=== PATIENT | female | born 1930 | race Hispanic/Latino ===

== ENCOUNTER 2017-03-30 17:09 | Emergency (ER) | payer MEDICARE ==
--- NOTE | 2017-03-30 17:21 | C.PDOC ---
History Of Present Illness 87 yr female with PMHx of seizure and dementia, brought in via BLS, presents to the ER s/p seizure at home. As per son-in-law, he had just served patient a tray of food when he heard the tray crash, upon his arrival he noticed the patient was not responding to commands and was staring blank into space. Son-in- law states he dialed 911 and by the time EMS arrived, patient had became alert and active and states she does not remember anything. Patient denies of pain, chest pain, SOB, headache or dizziness. Spoke to daughter Hattie who states patient is visiting from [place] and all doctors are located there. Daughter states last year the patient had a seizure and was started on Kepra and have been doing fine. Patient is non compliant with Kepra for the past 2 days since she ran out and was unable to refill it. Patient also has history of Lyme disease and severe rheumatoid arthritis with limited mobility. Patient also has history of hyperthyroid and is on synthroid. Daughter Alison - Hattie [phone] Time Seen by Provider: 03/30/17 17:12 History Per: Patient, Family (Son-in-law) History/Exam Limitations: no limitations Recent Seizure Activity Began: Just Before Arrival Past Medical History Reviewed: Historical Data, Nursing Documentation, Vital Signs Vital Signs: Last Vital Signs Temp 98 F 03/30/17 17:30 Pulse 90 03/30/17 17:30 Resp 16 03/30/17 17:30 BP 128/76 03/30/17 17:30 Pulse Ox 98 03/30/17 17:30 Family History: States: No Known Family Hx Review Of Systems Except As Marked, All Systems Reviewed And Found Negative. Cardiovascular: Negative for: Chest Pain Respiratory: Negative for: Shortness of Breath Neurological: Negative for: Headache, Dizziness Physical Exam - Physical Exam Appears: Non-toxic, No Acute Distress Skin: Warm, Dry, No Rash Head: Atraumatic, Normacephalic Eye(s): bilateral: Normal Inspection, PERRL, EOMI Oral Mucosa: Moist Neck: Normal, Normal ROM, Supple Chest: Symmetrical, No Tenderness Cardiovascular: Rhythm Regular, No Murmur Respiratory: Normal Breath Sounds, No Rales, No Rhonchi, No Stridor, No Wheezing Extremity: Normal ROM, No Swelling Neurological/Psych: Oriented x3, Normal Speech, Normal Motor Disposition - Disposition Disposition Time: 18:36 Condition: STABLE - Clinical Impression Clinical Impression: Seizure - Scribe Statement The provider has reviewed the documentation as recorded by the Scribe Kelly Pressley Provider Attestation: All medical record entries made by the Scribe were at my direction and personally dictated by me. I have reviewed the chart and agree that the record accurately reflects my personal performance of the history, physical exam, medical decision making, and the department course for this patient. I have also personally directed, reviewed, and agree with the discharge instructions and disposition. Physician Patient Turnover Patient Signed Over To: Cesar Bustillo DO Handoff Comments: patient s/p seizure, non compliant with meds X 2 days, pending head CT and labs. Pending arrival of daughter, Jaun weber, pending final dispo.
[2017-03-30 17:34] VITALS: RESP 16; TEMP 98; O2SAT 98
--- NOTE | 2017-03-30 18:17 | RAD ---
PROCEDURE: CHEST RADIOGRAPH, 1 VIEW HISTORY: Seizure COMPARISON: None available. FINDINGS: LUNGS: Clear. PLEURA: No pneumothorax or pleural fluid seen. CARDIOVASCULAR: ANABEL No radiographic findings to suggest acute or significant cardiovascular disease. OSSEOUS STRUCTURES: No significant abnormalities. VISUALIZED UPPER ABDOMEN: Normal. OTHER FINDINGS: None. IMPRESSION: No active disease.
[2017-03-30 18:49] LABS: HEMATOCRIT 39.2 % (34.0-47.0); MEAN CELL VOLUME 91.4 fL (81.0-99.0); MEAN CORPUSCULAR HEMOGLOBIN 30.8 pg (27.0-31.0); MEAN CORPUSCULAR HGB CONC 33.7 g/dL (33.0-37.0); MEAN PLATELET VOLUME 6.9 fL (7.2-11.7); WHITE BLOOD COUNT 6.3 K/uL (4.8-10.8)
--- NOTE | 2017-03-30 18:50 | CT ---
PROCEDURE: CT HEAD WITHOUT CONTRAST. HISTORY: seizure COMPARISON: None available. TECHNIQUE: Axial computed tomography images were obtained through the head/brain without intravenous contrast. Radiation dose: Total exam DLP = 908.35 mGy-cm. This CT exam was performed using one or more of the following dose reduction techniques: Automated exposure control, adjustment of the mA and/or kV according to patient size, and/or use of iterative reconstruction technique. FINDINGS: HEMORRHAGE: No intracranial hemorrhage. BRAIN: Diffuse atrophy with prominence of the ventricles and sulci noted. No mass effect or edema. Bilateral basal ganglia calcifications. Hypodensity within the left temporal lobe may reflect encephalomalacia. Scattered white matter hypodensities, which are nonspecific, but often seen with chronic microvascular ischemic disease. Please note that MRI with diffusion imaging is more sensitive in the detection of acute ischemic event. VENTRICLES: No hydrocephalus. CALVARIUM: Unremarkable. PARANASAL SINUSES: Unremarkable as visualized. No significant inflammatory changes. MASTOID AIR CELLS: Unremarkable as visualized. No inflammatory changes. OTHER FINDINGS: None. IMPRESSION: Generalized atrophy. Nonspecific white matter changes. Hypodense region within the left temporal lobe may reflect encephalomalacia.
[2017-03-30 19:02] LABS: ALB/GLOB RATIO 1.2 (1.0-2.1); ALCOHOL SERUM < 10 mg/dl (0-10); ALKALINE PHOSPHATASE 70 U/L (38-126); ALT/SGPT 29 U/L (9-52); AST/SGOT 21 U/L (14-36); BLOOD UREA NITROGEN 15 mg/dL (7-17); CARBON DIOXIDE 29 mmol/L (22-30); CHLORIDE 104 mmol/L (98-107); GFR AFRICAN-AMERICAN > 60; GLUCOSE,RANDOM 104 mg/dL (65-105); POTASSIUM 3.7 mmol/L (3.6-5.2); SODIUM 139 mmol/L (132-148); TOTAL PROTEIN 6.9 g/dL (6.3-8.3)
[2017-03-30 20:01] LABS: RBC URINE 2 /hpf (0-3); URINE BACTERIA RARE (<OCC); URINE BILIRUBIN NEGATIVE (NEGATIVE); URINE BLOOD NEGATIVE (NEGATIVE); URINE COLOR Yellow (YELLOW); URINE GLUCOSE (UA) NORMAL (Normal); URINE KETONE NEGATIVE (NEGATIVE); URINE LEUKOCYTE ESTERASE NEG Leu/uL (Negative); URINE PROTEIN NEGATIVE (NEGATIVE); URINE UROBILINOGEN NORMAL mg/dL (0.2-1.0); WBC URINE 5 /hpf (0-5)
[2017-03-30 20:40] VITALS: BP 131/52; PULSE 60
--- NOTE | 2017-04-01 13:16 | CARD ---
APPROVED REPORT EKG Measurement Heart [id number] <Conclusion> Normal sinus rhythm Nonspecific T wave abnormality Abnormal ECG
== END 2017-03-30 20:40 | disposition home or self-care (01) ==
LOC: C.ER 17:09
DX: G40.909 Epilepsy, unspecified, not intractable, without status epilepticus (principal)
CPT/HCPCS: 70450; 71010; 80053; 81001; 82948; 84484; 85027; 93005; 99285; G0480

== ENCOUNTER 2017-07-01 17:53 | Inpatient (IN) | payer MEDICARE ==
[2017-07-01] MEDS ORDERED: Aspirin 325 mg EC Tablets PO STA (18:32)
--- NOTE | 2017-07-01 18:47 | C.PDOC ---
History Of Present Illness 87 y/o female presents to the ED accompanied by daughter, complaining of epigastric pain and left lower chest pain for 3 days. Pain is associated with shortness of breath. Denies any associated nausea, vomiting, or diarrhea. Not taking meds for pain. Describes pain as pressure-like with intermittent moments of sharpness. Time Seen by Provider: 07/01/17 18:09 Chief Complaint (Nursing): Chest Pain History Per: Patient History/Exam Limitations: no limitations Onset/Duration Of Symptoms: Days (x3) Current Symptoms Are (Timing): Still Present Past Medical History Reviewed: Historical Data, Nursing Documentation, Vital Signs Vital Signs: Last Vital Signs Temp 97.8 F 07/01/17 18:19 Pulse 63 07/01/17 18:19 Resp 20 07/01/17 18:19 BP 146/67 07/01/17 18:19 Pulse Ox 98 07/01/17 20:46 - Medical History PMH: Hypothyroidism, Rheumatoid Arthritis, Seizures Family History: States: No Known Family Hx - Social History Hx Alcohol Use: No Hx Substance Use: No - Immunization History Hx Tetanus Toxoid Vaccination: No Hx Influenza Vaccination: No Hx Pneumococcal Vaccination: No Review Of Systems Except As Marked, All Systems Reviewed And Found Negative. Cardiovascular: Positive for: Chest Pain Physical Exam - Physical Exam Appears: Non-toxic, No Acute Distress Skin: Normal Color, Warm, Dry, No Diaphoretic Head: Atraumatic, Normacephalic Eye(s): bilateral: Normal Inspection, PERRL, EOMI Nose: Normal Oral Mucosa: Moist Neck: Normal ROM, Supple Chest: Symmetrical, No Tenderness Cardiovascular: Rhythm Regular, No Murmur Respiratory: Decreased Breath Sounds (at the bases), No Wheezing Gastrointestinal/Abdominal: Bowel Sounds, Soft, No Tenderness, No Distention Back: Normal Inspection, No CVA Tenderness, No Vertebral Tenderness Extremity: Normal ROM, No Calf Tenderness, Swelling (+1 bilateral pitting edema) Neurological/Psych: Oriented x3, Normal Speech ED Course And Treatment - Laboratory Results Result Diagrams: 07/01/17 19:18 07/01/17 19:18 ECG: Interpreted By Me, Viewed By Me ECG Rhythm: Sinus Bradycardia (at 55 bpm with poor R wave progression, normal intervals, normal axis. T wave inversion at leads 4, 5, 6) O2 Sat by Pulse Oximetry: 98 (RA) Pulse Ox Interpretation: Normal - Other Rad chest x-ray X-Ray: Interpreted by Me, Viewed By Me Interpretation: Hyperinflation, increased interstitial changes, no gross infiltrate. Medical Decision Making Medical Decision Making: Impression: Atypical chest pain Time: 18:32 Initial Plan: * EKG * Pro-BNP * Lipase * Troponin I * CMP * CBC * Chest x-ray * Aspirin 325 mg PO * Pepcid 20 mg IVP * Reevaluation Labs reviewed: troponin negative. On reevaluation, pt continues to complain of chest pain. 20:33 Patient will be admitted to [facility] for obs for chest pain. Disposition Discussed With : Mi Diaz Doctor Will See Patient In The: Hospital Counseled Patient/Family Regarding: Studies Performed, Diagnosis - Disposition Disposition: HOSPITALIZED Disposition Time: 20:33 Condition: FAIR Forms: [facility] (Polish) - Clinical Impression Clinical Impression: Chest pain - Scribe Statement The provider has reviewed the documentation as recorded by the Melissa Rincon Provider Attestation: All medical record entries made by the Himaibefraín were at my direction and personally dictated by me. I have reviewed the chart and agree that the record accurately reflects my personal performance of the history, physical exam, medical decision making, and the department course for this patient. I have also personally directed, reviewed, and agree with the discharge instructions and disposition. Decision To Admit - Pt Status Changed To: Hospital Disposition Of: Observation - . Bed Request Type: Regular Patient Diagnosis: Chest pain
[2017-07-01 19:25] LABS: BASO # 0.1 K/uL (0.0-0.2); BASO % 2.5 % (0.0-2.0); EOS # 0.1 K/uL (0.0-0.7); EOS % 1.7 % (0.0-4.0); HEMOGLOBIN 12.7 g/dL (11.0-16.0); LYMPH # 2.5 K/uL (1.0-4.3); LYMPH % 44.7 % (20.0-40.0); MEAN CELL VOLUME 90.8 fL (81.0-99.0); MEAN CORPUSCULAR HEMOGLOBIN 31.1 pg (27.0-31.0); MEAN CORPUSCULAR HGB CONC 34.3 g/dL (33.0-37.0); MONO # 0.7 K/uL (0.0-0.8); MONO % 13.2 % (0.0-10.0); NEUT # 2.1 K/uL (1.8-7.0); NEUT % 37.9 % (50.0-75.0); RBC 4.08 Mil/uL (3.80-5.20); WHITE BLOOD COUNT 5.6 K/uL (4.8-10.8)
[2017-07-01 19:33] LABS: ALBUMIN 3.7 g/dL (3.5-5.0); ALT/SGPT 19 U/L (9-52); AST/SGOT 21 U/L (14-36); BLOOD UREA NITROGEN 14 mg/dL (7-17); CALCIUM 8.6 mg/dl (8.6-10.4); GFR AFRICAN-AMERICAN > 60; GFR NON-AFRICAN AMERICAN > 60; LIPASE 29 U/L (23-300)
[2017-07-01 19:44] LABS: B-TYPE NATRIURETIC PEPTIDE 122 pg/mL (0-900)
--- NOTE | 2017-07-01 22:36 | CP.PCM.HP ---
Present on Admission - Present on Admission Any Indicators Present on Admission: No Past Patient History - Past Social History Smoking Status: Never Smoked - CARDIAC Other/Comment: "implanted heart monitor" - NEUROLOGICAL Hx Seizures: Yes - ENDOCRINE/METABOLIC Hx Hypothyroidism: Yes - MUSCULOSKELETAL/RHEUMATOLOGICAL Hx Rheumatoid Arthritis: Yes - PSYCHIATRIC Hx Substance Use: No - SURGICAL HISTORY Hx Thyroidectomy: Yes Meds Allergies/Adverse Reactions: Allergies Allergy/AdvReac Type Severity Reaction Status Date / Time No Known Allergies Allergy Verified 07/01/17 18:25 Results - Vital Signs Recent Vital Signs: Last Vital Signs Temp 97.7 F 07/01/17 22:13 Pulse 58 L 07/01/17 22:04 Resp 20 07/01/17 22:04 BP 153/119 H 07/01/17 22:04 Pulse Ox 100 07/01/17 22:04 - Labs Result Diagrams: 07/01/17 19:18 07/01/17 19:18 Labs: Laboratory Results - last 24 hr 07/01/17 07/01/17 19:18 19:18 WBC 5.6 RBC 4.08 Hgb 12.7 Hct 37.1 MCV 90.8 MCH 31.1 H MCHC 34.3 RDW 14.0 Plt Count 342 MPV 7.0 L Neut % (Auto) 37.9 L Lymph % (Auto) 44.7 H [place] % (Auto) 13.2 H Eos % (Auto) 1.7 Baso % (Auto) 2.5 H Neut # (Auto) 2.1 Lymph # (Auto) 2.5 [place] # (Auto) 0.7 Eos # (Auto) 0.1 Baso # (Auto) 0.1 Sodium 141 Potassium 3.7 Chloride 104 Carbon Dioxide 26 Anion Gap 15 BUN 14 Creatinine 0.6 L Est GFR ( Amer) > 60 Est GFR (Non-Af Amer) > 60 Random Glucose 83 Calcium 8.6 Total Bilirubin 0.8 AST 21 ALT 19 Alkaline Phosphatase 67 Troponin I < 0.0120 NT-Pro-B Natriuret Pep 122 Total Protein 7.6 Albumin 3.7 Globulin 3.9 Albumin/Globulin Ratio 1.0 Lipase 29 Assessment & Plan - Assessment and Plan (Free Text) Plan: Continue Keppra continue Levoxyl Omit [address] Jesus Owens Reconciliation of full medications Protonix Lovenox
[2017-07-02 04:47] LABS: CK-MB 0.43 ng/mL (0.0-3.38)
[2017-07-02] MEDS: Levothyroxine 75 MCG TAB PO SCH (06:30)
--- NOTE | 2017-07-02 06:47 | RAD ---
Chest x-ray single frontal view History: Chest pain. Comparison: 03/30/2017 Findings: Biapical pleural thickening with upper lobe granulomatous changes. Prominent diffuse increased interstitial lung markings. Linear atelectasis at the left lung base. Calcification at the aortic knob. Battery device projects over the left heart border. Degenerative changes in the spine and shoulders. Impression: Biapical pleural thickening with upper lobe granulomatous changes. Prominent diffuse increased interstitial lung markings. Linear atelectasis at the left lung base. Calcification at the aortic knob. Battery device projects over the left heart border.
[2017-07-02] MEDS: Pantoprazole 40 mg EC Tab PO SCH (09:59)
[2017-07-02] MEDS: Enoxaparin 40 mg Syringe SC SCH (09:59)
--- NOTE | 2017-07-02 10:21 | CP.PCM.PN ---
Subjective - Date & Time of Evaluation Date of Evaluation: 07/02/17 Time of Evaluation: 09:00 - Subjective Subjective: PGY-2 Progress Note Patient seen and examined at bedside. No acute events reported overnight. Patient still complaints of intermittent chest pain, it is reproducible with movement. Patient denies having fever, chills, shortness of breath, nausea, vomiting, or diarrhea. Spoken with patient's daughter (Hattie [phone]) over the phone, stating that patient moved to [place] 6 months ago and her atomic fuel assembler is Dr. Cesar Barry in [place], [place]. Patient has Medtronic LINQ device placed 2 years ago to evaluate her arrhythmia. Patient's device was last checked 6 months ago and it was functional. Objective - Vital Signs/Intake and Output Vital Signs (last 24 hours): Temp Pulse Resp BP Pulse Ox 98.2 F 60 20 152/76 H 98 07/02/17 08:07 07/02/17 08:23 07/02/17 08:07 07/02/17 08:07 07/02/17 08:12 Intake and Output: 07/02/17 07/02/17 06:59 18:59 Output Total 150 Balance -150 - Medications Medications: Current Medications Aspirin (Aspirin) 325 mg PO DAILY [facility] Last Admin: 07/02/17 10:00 Dose: 325 mg Enoxaparin Sodium (Lovenox) 40 mg SC DAILY [facility] Last Admin: 07/02/17 09:59 Dose: 40 mg Levetiracetam (Keppra) 500 mg PO BID [facility] Last Admin: 07/02/17 10:00 Dose: 500 mg Levothyroxine Sodium (Synthroid) 75 mcg PO DAILY@0630 [facility] Last Admin: 07/02/17 06:30 Dose: 75 mcg Pantoprazole Sodium (Protonix Ec Tab) 40 mg PO DAILY [facility] Last Admin: 07/02/17 09:59 Dose: 40 mg - Labs Labs: 07/01/17 19:18 07/01/17 19:18 - Constitutional Appears: Non-toxic, No Acute Distress - Head Exam Head Exam: ATRAUMATIC - Eye Exam Eye Exam: EOMI Pupil Exam: NORMAL ACCOMODATION - ENT Exam ENT Exam: Mucous Membranes Moist - Neck Exam Neck Exam: Normal Inspection - Respiratory Exam Respiratory Exam: Clear to Ausculation Bilateral, NORMAL BREATHING PATTERN - Cardiovascular Exam Cardiovascular Exam: REGULAR RHYTHM, +S1, +S2 - GI/Abdominal Exam GI & Abdominal Exam: Soft, Normal Bowel Sounds. absent: Tenderness - Neurological Exam Neurological Exam: Alert, Awake, Oriented x3 - Psychiatric Exam Psychiatric exam: Normal Affect, Normal Mood - Skin Skin Exam: Dry, Warm Additional comments: Palpable site operations manager device located under the left breast Assessment and Plan - Assessment and Plan (Free Text) Assessment: Chest pain -EKG unremarkable -Troponin negative x2, pending -Aspirin 325mg -Echo pending -Cardiology consult, Dr. Kwan help appreciated -Patient has Medtronic LINQ device History of hypothyroidism -synthroid 75mcg History of seizure -Keppra 500mg po BID Prophylactic measures -Lovenox -Protonix Case discussed with attending Dr. Diaz All management per Dr. Diaz
[2017-07-02 12:54] LABS: CK-MB 0.55 ng/mL (0.0-3.38)
--- NOTE | 2017-07-02 13:45 | CP.PCM.PN ---
Subjective - Date & Time of Evaluation Date of Evaluation: 07/02/17 Time of Evaluation: 11:00 - Subjective Subjective: clinically same Objective - Vital Signs/Intake and Output Vital Signs (last 24 hours): Temp Pulse Resp BP Pulse Ox 98.2 F 63 20 152/76 H 98 07/02/17 08:07 07/02/17 11:32 07/02/17 08:07 07/02/17 08:07 07/02/17 08:12 Intake and Output: 07/02/17 07/02/17 06:59 18:59 Output Total 150 Balance -150 - Medications Medications: Current Medications Aspirin (Aspirin) 325 mg PO DAILY [facility] Last Admin: 07/02/17 10:00 Dose: 325 mg Enoxaparin Sodium (Lovenox) 40 mg SC DAILY [facility] Last Admin: 07/02/17 09:59 Dose: 40 mg Levetiracetam (Keppra) 500 mg PO BID [facility] Last Admin: 07/02/17 10:00 Dose: 500 mg Levothyroxine Sodium (Synthroid) 75 mcg PO DAILY@0630 [facility] Last Admin: 07/02/17 06:30 Dose: 75 mcg Pantoprazole Sodium (Protonix Ec Tab) 40 mg PO DAILY [facility] Last Admin: 07/02/17 09:59 Dose: 40 mg - Labs Labs: 07/01/17 19:18 07/01/17 19:18 - Constitutional Appears: Well - Head Exam Head Exam: ATRAUMATIC, NORMAL INSPECTION, NORMOCEPHALIC - Eye Exam Eye Exam: EOMI, Normal appearance, PERRL Pupil Exam: NORMAL ACCOMODATION, PERRL - ENT Exam ENT Exam: Mucous Membranes Moist, Normal Exam - Neck Exam Neck Exam: Full ROM, Normal Inspection. absent: Lymphadenopathy - Respiratory Exam Respiratory Exam: Decreased Breath Sounds - Cardiovascular Exam Cardiovascular Exam: REGULAR RHYTHM, +S1, +S2 - GI/Abdominal Exam GI & Abdominal Exam: Soft, Diminished Bowel Sounds - Rectal Exam Rectal Exam: Deferred
--- NOTE | 2017-07-03 01:02 | CARD ---
APPROVED REPORT EXAM: Two-dimensional and M-mode echocardiogram with Doppler and color Doppler. Other Information Quality : GoodRhythm : INDICATION Chest Pain 2D DIMENSIONS IVSd1.0 (0.7-1.1cm)LVDd3.8 (3.9-5.9cm) PWd0.9 (0.7-1.1cm)LVDs1.5 (2.5-4.0cm) FS (%) 61.5 % M-Mode DIMENSIONS RVDd1.37 (2.1-3.2cm)Left Atrium (MM)3.46 (2.5-4.0cm) IVSd1.14 (0.7-1.1cm)Aortic Root2.35 (2.2-3.7cm) LVDd4.15 (4.0-5.6cm)Aortic Cusp Exc.1.46 (1.5-2.0cm) PWd1.09 (0.7-1.1cm)FS (%) 42 % LVDs2.40 (2.0-3.8cm)LVEF (%)73 (>50%) Aortic Valve AI P 1/2 [id number] Mitral Valve MV E Jusobepn68.4cm/sMV A Pbbfdrxg74.2cm/sE/A ratio0.8 TDI E/Lateral E'0.0E/Medial E'0.0 Tricuspid Valve TR Peak [id number]/sTR Peak [id number] LEFT VENTRICLE The left ventricle is normal size. There is borderline to mild concentric left ventricular hypertrophy. Left ventricle systolic function is normal. The Ejection Fraction is >70%. There is normal LV segmental wall motion. Tissue Doppler imaging reveals abnormal left ventricular diastolic dysfunction. RIGHT VENTRICLE The right ventricle is normal size. There is normal right ventricular wall thickness. The right ventricular systolic function is normal. ATRIA The left atrium size is normal. The right atrium size is normal. The interatrial septum is intact with no evidence for an atrial septal defect. AORTIC VALVE The aortic valve is normal in structure. There is mild aortic regurgitation. There is no aortic valvular stenosis. MITRAL VALVE The mitral valve is normal in structure. There is no evidence of mitral valve prolapse. There is no mitral valve stenosis. Mitral regurgitation is mild. TRICUSPID VALVE The tricuspid valve is normal in structure. There is mild tricuspid regurgitation. Right ventricular systolic pressure is estimated at less than 30 mmHg. There is no pulmonary hypertension. PULMONIC VALVE The pulmonic valve is not well visualized. There is no pulmonic valvular regurgitation. GREAT VESSELS The aortic root is normal in size. PERICARDIAL EFFUSION There is no pericardial effusion. <Conclusion> Left ventricle systolic function is normal. The Ejection Fraction is >70%. Hypertensive heart disease. Diastolic dysfunction. There is mild aortic regurgitation. Mitral regurgitation is mild. There is mild tricuspid regurgitation. There is no pulmonary hypertension. There is no pulmonic valvular regurgitation.
[2017-07-03] MEDS: Levothyroxine 75 MCG TAB PO SCH (05:58)
[2017-07-03 07:45] LABS: BASO # 0.1 K/uL (0.0-0.2); BASO % 1.4 % (0.0-2.0); EOS # 0.2 K/uL (0.0-0.7); EOS % 3.6 % (0.0-4.0); HEMOGLOBIN 12.8 g/dL (11.0-16.0); LYMPH # 2.5 K/uL (1.0-4.3); LYMPH % 48.9 % (20.0-40.0); MEAN CELL VOLUME 91.5 fL (81.0-99.0); MEAN CORPUSCULAR HEMOGLOBIN 31.5 pg (27.0-31.0); MEAN CORPUSCULAR HGB CONC 34.4 g/dL (33.0-37.0); MEAN PLATELET VOLUME 7.6 fL (7.2-11.7); MONO # 0.7 K/uL (0.0-0.8); MONO % 13.3 % (0.0-10.0); NEUT # 1.6 K/uL (1.8-7.0); NEUT % 32.8 % (50.0-75.0); NRBC % 0.1 % (0.0-2.0); RBC 4.08 Mil/uL (3.80-5.20); RED CELL DISTRIBUTION WIDTH 13.9 % (11.5-14.5)
[2017-07-03 08:00] LABS: ALBUMIN 3.6 g/dL (3.5-5.0); ALT/SGPT 13 U/L (9-52); AST/SGOT 27 U/L (14-36); BLOOD UREA NITROGEN 13 mg/dL (7-17); CALCIUM 8.6 mg/dl (8.6-10.4); GFR AFRICAN-AMERICAN > 60; GFR NON-AFRICAN AMERICAN > 60
[2017-07-03] MEDS: Enoxaparin 40 mg Syringe SC SCH (10:10)
[2017-07-03] MEDS: Pantoprazole 40 mg EC Tab PO SCH (10:10)
--- NOTE | 2017-07-03 13:11 | CP.PCM.CON ---
History of Present Illness - History of Present Illness History of Present Illness: 87 y/o woman- poor historian: emperatriz with c/o chest wall and vague abdominal pain: No fevr, chills, CHF sx;s, palpitation or distress + hx dementia + hx seizure disorder + resides in [place] but moved here 6 months ago + Dementia Ambulates with assistance, uses a cane No documented hx of AK or CVA Has had a loop monitor implanted L. chest to monitor for arrythmia: Currently in TELE has remained Sinus judy, NSR, no AFIB Resting comfortably in bed, responds to simple questions. Review of Systems - Review of Systems All systems: reviewed and no additional remarkable complaints except Past Patient History - Past Social History Smoking Status: Never Smoked - CARDIAC Other/Comment: "implanted heart monitor" - NEUROLOGICAL Hx Seizures: Yes - ENDOCRINE/METABOLIC Hx Hypothyroidism: Yes - MUSCULOSKELETAL/RHEUMATOLOGICAL Hx Rheumatoid Arthritis: Yes - PSYCHIATRIC Hx Substance Use: No - SURGICAL HISTORY Hx Thyroidectomy: Yes Meds Allergies/Adverse Reactions: Allergies Allergy/AdvReac Type Severity Reaction Status Date / Time No Known Allergies Allergy Verified 07/01/17 18:25 - Medications Medications: Current Medications Acetaminophen (Tylenol 325mg Tab) 650 mg PO Q6 PRN PRN Reason: Pain, Mild (1-3) Last Admin: 07/03/17 10:11 Dose: 650 mg Aspirin (Aspirin) 325 mg PO DAILY [facility] Last Admin: 07/03/17 10:10 Dose: 325 mg Enoxaparin Sodium (Lovenox) 40 mg SC DAILY [facility] Last Admin: 07/03/17 10:10 Dose: 40 mg Levetiracetam (Keppra) 500 mg PO BID [facility] Last Admin: 07/03/17 10:10 Dose: 500 mg Levothyroxine Sodium (Synthroid) 75 mcg PO DAILY@0630 [facility] Last Admin: 07/03/17 05:58 Dose: 75 mcg Pantoprazole Sodium (Protonix Ec Tab) 40 mg PO DAILY [facility] Last Admin: 07/03/17 10:10 Dose: 40 mg Physical Exam - Constitutional Appears: No Acute Distress, Older Than Stated Age - Head Exam Head Exam: ATRAUMATIC, NORMAL INSPECTION, NORMOCEPHALIC - Eye Exam Eye Exam: EOMI, Normal appearance, PERRL - ENT Exam ENT Exam: Mucous Membranes Moist, Normal Oropharynx - Neck Exam Neck exam: Positive for: Normal Inspection. Negative for: Tenderness, Thyromegaly - Respiratory Exam Respiratory Exam: Clear to Auscultation Bilateral, NORMAL BREATHING PATTERN. absent: Rales, Rhonchi, Wheezes - Cardiovascular Exam Cardiovascular Exam: REGULAR RHYTHM, +S1, +S2. absent: Gallop, +S4, Systolic Murmur - GI/Abdominal Exam GI & Abdominal Exam: Normal Bowel Sounds, Soft. absent: Tenderness - Extremities Exam Extremities exam: Positive for: normal inspection, pedal pulses present. Negative for: calf tenderness, pedal edema - Neurological Exam Neurological exam: Alert - Psychiatric Exam Psychiatric exam: Normal Affect, Normal Mood - Skin Skin Exam: Normal Color, Warm Results - Vital Signs Recent Vital Signs: Last Vital Signs Temp 98.1 F 07/03/17 12:56 Pulse 66 07/03/17 12:56 Resp 20 07/03/17 12:56 BP 136/77 07/03/17 12:56 Pulse Ox 98 07/03/17 12:56 - Labs Result Diagrams: 07/03/17 07:35 07/03/17 07:35 Labs: Laboratory Results - last 24 hr 07/03/17 07/03/17 07:35 07:35 WBC 5.0 RBC 4.08 Hgb 12.8 Hct 37.3 MCV 91.5 MCH 31.5 H MCHC 34.4 RDW 13.9 Plt Count 324 MPV 7.6 Neut % (Auto) 32.8 L Lymph % (Auto) 48.9 H [place] % (Auto) 13.3 H Eos % (Auto) 3.6 Baso % (Auto) 1.4 Neut # (Auto) 1.6 L Lymph # (Auto) 2.5 [place] # (Auto) 0.7 Eos # (Auto) 0.2 Baso # (Auto) 0.1 Sodium 143 Potassium 3.7 Chloride 104 Carbon Dioxide 28 Anion Gap 15 BUN 13 Creatinine 0.6 L Est GFR ( Amer) > 60 Est GFR (Non-Af Amer) > 60 Random Glucose 86 Calcium 8.6 Total Bilirubin 0.9 AST 27 ALT 13 Alkaline Phosphatase 60 Total Protein 7.4 Albumin 3.6 Globulin 3.8 Albumin/Globulin Ratio 1.0 - EKG Data EKG Interpreted by: Myself EKG shows normal: Sinus rhythm (Sinus judy, non-specific ST/T changes) Assessment & Plan - Assessment and Plan (Free Text) Assessment: CC: -----> Chest pain : Atypical, chest wall tenderness c/w musckuloskeletal strain : AK ruled out : EKG.. No acute ischemic changes : Echo directly viwed by me: Normal LVEF and wall motion, mild AI,MR,TR, normal RV size and PASP, Mild LVH, : CXR...No infiltrates, normal cardiac Based on the above there is no suspicion for ACS/CHF, No arrythmia has been noted on TELE andlabs are WNL : Patient has a loop recorder to monitor for arrythmia and can be continued as outpatient. : COnt ASA : Add Norvasc 2.5 daily to help with BP : physical therapy, continue meds for seizure d/o and thyroid No additional cardiac testing suggested: d/c planning from cardiac stand-point.
--- NOTE | 2017-07-03 15:04 | CP.PCM.PN ---
Subjective - Date & Time of Evaluation Date of Evaluation: 07/03/17 Time of Evaluation: 12:40 - Subjective Subjective: clinically same Objective - Vital Signs/Intake and Output Vital Signs (last 24 hours): Temp Pulse Resp BP Pulse Ox 98.1 F 66 20 136/77 98 07/03/17 12:56 07/03/17 12:56 07/03/17 12:56 07/03/17 12:56 07/03/17 12:56 Intake and Output: 07/03/17 07/03/17 06:59 18:59 Intake Total 10 Balance 10 - Medications Medications: Current Medications Acetaminophen (Tylenol 325mg Tab) 650 mg PO Q6 PRN PRN Reason: Pain, Mild (1-3) Last Admin: 07/03/17 10:11 Dose: 650 mg Aspirin (Aspirin) 325 mg PO DAILY [facility] Last Admin: 07/03/17 10:10 Dose: 325 mg Enoxaparin Sodium (Lovenox) 40 mg SC DAILY [facility] Last Admin: 07/03/17 10:10 Dose: 40 mg Levetiracetam (Keppra) 500 mg PO BID [facility] Last Admin: 07/03/17 10:10 Dose: 500 mg Levothyroxine Sodium (Synthroid) 75 mcg PO DAILY@0630 [facility] Last Admin: 07/03/17 05:58 Dose: 75 mcg Pantoprazole Sodium (Protonix Ec Tab) 40 mg PO DAILY [facility] Last Admin: 07/03/17 10:10 Dose: 40 mg - Labs Labs: 07/03/17 07:35 07/03/17 07:35 - Constitutional Appears: Well - Head Exam Head Exam: ATRAUMATIC, NORMAL INSPECTION, NORMOCEPHALIC - Eye Exam Eye Exam: EOMI, Normal appearance, PERRL Pupil Exam: NORMAL ACCOMODATION, PERRL - ENT Exam ENT Exam: Mucous Membranes Moist, Normal Exam - Neck Exam Neck Exam: Full ROM, Normal Inspection. absent: Lymphadenopathy - Respiratory Exam Respiratory Exam: Decreased Breath Sounds - Cardiovascular Exam Cardiovascular Exam: REGULAR RHYTHM, +S1, +S2 - GI/Abdominal Exam GI & Abdominal Exam: Soft, Diminished Bowel Sounds - Rectal Exam Rectal Exam: Deferred
[2017-07-04] MEDS: Levothyroxine 75 MCG TAB PO SCH (06:03)
[2017-07-04 08:47] LABS: BASO # 0.1 K/uL (0.0-0.2); BASO % 1.5 % (0.0-2.0); EOS # 0.2 K/uL (0.0-0.7); HEMOGLOBIN 13.6 g/dL (11.0-16.0); LYMPH # 2.6 K/uL (1.0-4.3); LYMPH % 47.2 % (20.0-40.0); MEAN CORPUSCULAR HEMOGLOBIN 31.1 pg (27.0-31.0); MEAN CORPUSCULAR HGB CONC 34.2 g/dL (33.0-37.0); MEAN PLATELET VOLUME 7.6 fL (7.2-11.7); MONO # 0.8 K/uL (0.0-0.8); MONO % 13.8 % (0.0-10.0); NEUT # 1.9 K/uL (1.8-7.0); NEUT % 33.5 % (50.0-75.0); NRBC % 0.1 % (0.0-2.0); RBC 4.35 Mil/uL (3.80-5.20); RED CELL DISTRIBUTION WIDTH 14.1 % (11.5-14.5); WHITE BLOOD COUNT 5.5 K/uL (4.8-10.8)
[2017-07-04 08:53] LABS: ALBUMIN 3.7 g/dL (3.5-5.0); ALT/SGPT 16 U/L (9-52); AST/SGOT 22 U/L (14-36); BLOOD UREA NITROGEN 14 mg/dL (7-17); CALCIUM 8.7 mg/dl (8.6-10.4); GFR AFRICAN-AMERICAN > 60; GFR NON-AFRICAN AMERICAN > 60
[2017-07-04] MEDS: Enoxaparin 40 mg Syringe SC SCH (10:13)
[2017-07-04] MEDS: Pantoprazole 40 mg EC Tab PO SCH (10:13)
[2017-07-04 16:20] VITALS: RESP 20
--- NOTE | 2017-07-04 17:55 | CP.PCM.PN ---
Subjective - Date & Time of Evaluation Date of Evaluation: 07/04/17 Time of Evaluation: 11:40 - Subjective Subjective: clinically same Objective - Vital Signs/Intake and Output Vital Signs (last 24 hours): Temp Pulse Resp BP Pulse Ox 97 F L 62 20 140/65 96 07/04/17 16:19 07/04/17 16:19 07/04/17 16:19 07/04/17 16:19 07/04/17 16:19 Intake and Output: 07/04/17 07/04/17 06:59 18:59 Intake Total 500 Output Total 400 Balance 100 - Medications Medications: Current Medications Acetaminophen (Tylenol 325mg Tab) 650 mg PO Q6 PRN PRN Reason: Pain, Mild (1-3) Last Admin: 07/03/17 10:11 Dose: 650 mg Aspirin (Aspirin) 325 mg PO DAILY [facility] Last Admin: 07/04/17 10:13 Dose: 325 mg Enoxaparin Sodium (Lovenox) 40 mg SC DAILY [facility] Last Admin: 07/04/17 10:13 Dose: 40 mg Levetiracetam (Keppra) 500 mg PO BID [facility] Last Admin: 07/04/17 17:43 Dose: 500 mg Levothyroxine Sodium (Synthroid) 75 mcg PO DAILY@0630 [facility] Last Admin: 07/04/17 06:03 Dose: 75 mcg Pantoprazole Sodium (Protonix Ec Tab) 40 mg PO DAILY [facility] Last Admin: 07/04/17 10:13 Dose: 40 mg - Labs Labs: 07/04/17 08:26 07/04/17 08:26 - Constitutional Appears: Well - Head Exam Head Exam: ATRAUMATIC, NORMAL INSPECTION, NORMOCEPHALIC - Eye Exam Eye Exam: EOMI, Normal appearance, PERRL Pupil Exam: NORMAL ACCOMODATION, PERRL - ENT Exam ENT Exam: Mucous Membranes Moist, Normal Exam - Neck Exam Neck Exam: Full ROM, Normal Inspection. absent: Lymphadenopathy - Respiratory Exam Respiratory Exam: Decreased Breath Sounds - Cardiovascular Exam Cardiovascular Exam: REGULAR RHYTHM, +S1, +S2 - GI/Abdominal Exam GI & Abdominal Exam: Soft, Diminished Bowel Sounds - Rectal Exam Rectal Exam: Deferred
[2017-07-05] MEDS: Levothyroxine 75 MCG TAB PO SCH (05:47)
[2017-07-05 07:52] VITALS: O2SAT 99
[2017-07-05 08:08] LABS: BASO % 0.7 % (0.0-2.0); EOS # 0.2 K/uL (0.0-0.7); EOS % 3.4 % (0.0-4.0); HEMOGLOBIN 14.4 g/dL (11.0-16.0); LYMPH # 2.5 K/uL (1.0-4.3); LYMPH % 45.8 % (20.0-40.0); MEAN CELL VOLUME 91.8 fL (81.0-99.0); MEAN CORPUSCULAR HEMOGLOBIN 30.8 pg (27.0-31.0); MEAN CORPUSCULAR HGB CONC 33.6 g/dL (33.0-37.0); MEAN PLATELET VOLUME 7.6 fL (7.2-11.7); MONO # 0.8 K/uL (0.0-0.8); MONO % 14.5 % (0.0-10.0); NEUT # 1.9 K/uL (1.8-7.0); NEUT % 35.6 % (50.0-75.0); NRBC % 0.1 % (0.0-2.0); RBC 4.68 Mil/uL (3.80-5.20); RED CELL DISTRIBUTION WIDTH 14.2 % (11.5-14.5); WHITE BLOOD COUNT 5.4 K/uL (4.8-10.8)
[2017-07-05 08:31] LABS: ALT/SGPT 13 U/L (9-52); AST/SGOT 32 U/L (14-36); BLOOD UREA NITROGEN 9 mg/dL (7-17); CALCIUM 8.9 mg/dl (8.6-10.4); GFR AFRICAN-AMERICAN > 60; GFR NON-AFRICAN AMERICAN > 60
[2017-07-05] MEDS: Enoxaparin 40 mg Syringe SC SCH (10:36)
[2017-07-05] MEDS: Pantoprazole 40 mg EC Tab PO SCH (10:36)
--- NOTE | 2017-07-05 14:30 | CP.PCM.PN ---
Subjective - Date & Time of Evaluation Date of Evaluation: 07/05/17 Time of Evaluation: 11:40 - Subjective Subjective: Patient seen today awake, alert , oriented to person , forgetful , denies any sob, palpitations, dizziness , N/V/ No overnight events recorded on monitor judy- high 50,s , no change from admission Objective - Vital Signs/Intake and Output Vital Signs (last 24 hours): Temp Pulse Resp BP Pulse Ox 97.5 F L 57 L 20 163/65 H 99 07/05/17 07:00 07/05/17 07:00 07/05/17 07:00 07/05/17 07:00 07/05/17 07:00 Intake and Output: 07/05/17 07/05/17 06:59 18:59 Intake Total 440 Balance 440 - Medications Medications: Current Medications Acetaminophen (Tylenol 325mg Tab) 650 mg PO Q6 PRN PRN Reason: Pain, Mild (1-3) Last Admin: 07/03/17 10:11 Dose: 650 mg Amlodipine Besylate (Norvasc) 2.5 mg PO DAILY [facility] Last Admin: 07/05/17 13:17 Dose: 2.5 mg Aspirin (Aspirin) 325 mg PO DAILY [facility] Last Admin: 07/05/17 10:36 Dose: 325 mg Enoxaparin Sodium (Lovenox) 40 mg SC DAILY [facility] Last Admin: 07/05/17 10:36 Dose: 40 mg Levetiracetam (Keppra) 500 mg PO BID [facility] Last Admin: 07/05/17 10:36 Dose: 500 mg Levothyroxine Sodium (Synthroid) 75 mcg PO DAILY@0630 [facility] Last Admin: 07/05/17 05:47 Dose: 75 mcg Pantoprazole Sodium (Protonix Ec Tab) 40 mg PO DAILY [facility] Last Admin: 07/05/17 10:36 Dose: 40 mg - Labs Labs: 07/05/17 07:47 07/05/17 07:47 - Constitutional Appears: Well, No Acute Distress - Respiratory Exam Respiratory Exam: Clear to Ausculation Bilateral, NORMAL BREATHING PATTERN - Cardiovascular Exam Cardiovascular Exam: Bradycardia, +S1, +S2 (tenderness on palpitations to the chest wall ) Assessment and Plan - Assessment and Plan (Free Text) Assessment: A/P 87 yr old female admitted with chest pain troponin x 3 - negative Echo- normal EF Dr. Garza consulted for chest pain , pt has loop recorder for monitoring arrhythmia and no further cardiac work up recommended seen by Dr. Billy trevino stable for discharge home today
[2017-07-05 16:20] VITALS: BP 114/59; PULSE 61; TEMP 97
--- NOTE | 2017-07-05 17:41 | CP.PCM.PN ---
Subjective - Date & Time of Evaluation Date of Evaluation: 07/05/17 Time of Evaluation: 13:00 - Subjective Subjective: clinically same Objective - Vital Signs/Intake and Output Vital Signs (last 24 hours): Temp Pulse Resp BP Pulse Ox 97 F L 61 20 114/59 L 99 07/05/17 15:00 07/05/17 15:00 07/05/17 15:00 07/05/17 15:00 07/05/17 15:00 Intake and Output: 07/05/17 07/05/17 06:59 18:59 Intake Total 440 Balance 440 - Medications Medications: Current Medications Acetaminophen (Tylenol 325mg Tab) 650 mg PO Q6 PRN PRN Reason: Pain, Mild (1-3) Last Admin: 07/03/17 10:11 Dose: 650 mg Amlodipine Besylate (Norvasc) 2.5 mg PO DAILY [facility] Last Admin: 07/05/17 13:17 Dose: 2.5 mg Aspirin (Aspirin) 325 mg PO DAILY [facility] Last Admin: 07/05/17 10:36 Dose: 325 mg Enoxaparin Sodium (Lovenox) 40 mg SC DAILY [facility] Last Admin: 07/05/17 10:36 Dose: 40 mg Levetiracetam (Keppra) 500 mg PO BID [facility] Last Admin: 07/05/17 10:36 Dose: 500 mg Levothyroxine Sodium (Synthroid) 75 mcg PO DAILY@0630 [facility] Last Admin: 07/05/17 05:47 Dose: 75 mcg Pantoprazole Sodium (Protonix Ec Tab) 40 mg PO DAILY [facility] Last Admin: 07/05/17 10:36 Dose: 40 mg - Labs Labs: 07/05/17 07:47 07/05/17 07:47 - Constitutional Appears: Well - Head Exam Head Exam: ATRAUMATIC, NORMAL INSPECTION, NORMOCEPHALIC - Eye Exam Eye Exam: EOMI, Normal appearance, PERRL Pupil Exam: NORMAL ACCOMODATION, PERRL - ENT Exam ENT Exam: Mucous Membranes Moist, Normal Exam - Neck Exam Neck Exam: Full ROM, Normal Inspection. absent: Lymphadenopathy - Respiratory Exam Respiratory Exam: Decreased Breath Sounds - Cardiovascular Exam Cardiovascular Exam: REGULAR RHYTHM, +S1, +S2 - GI/Abdominal Exam GI & Abdominal Exam: Soft, Diminished Bowel Sounds - Rectal Exam Rectal Exam: Deferred
== END 2017-07-05 18:56 | disposition home health service (06) | DRG 313 ==
LOC: C.ER 17:53 → C.9E 20:33 → C.6T 21:51 → OBSVTOIN 07-04 13:49
PROVIDERS: ADMIT Internal Medicine Nephrology; ATTEND Internal Medicine Nephrology
DX: R07.89 Other chest pain (principal); F03.90 Unspecified dementia, unspecified severity, without behavioral disturbance, psychotic disturbance, mood disturbance, and anxiety; G40.909 Epilepsy, unspecified, not intractable, without status epilepticus; E89.0 Postprocedural hypothyroidism; M06.9 Rheumatoid arthritis, unspecified; Z95.818 Presence of other cardiac implants and grafts; Z79.82 Long term (current) use of aspirin

== ENCOUNTER 2018-08-19 04:34 | Inpatient (IN) | payer MEDICARE ==
--- NOTE | 2018-08-19 05:14 | C.PDOC ---
History Of Present Illness Patient brought in by family for worsening diffuse generalized body aches. Patient with severe rheumatoid arthritis and osteoarthritis, states today she couldn't even get out of bed, normal gets out of bed after taking some time. She also reports having some buttock pain. Denies fever, chills, nausea, or vomiting. Time Seen by Provider: 08/19/18 05:13 Chief Complaint (Nursing): Pain, Chronic History Per: Patient History/Exam Limitations: no limitations Onset/Duration Of Symptoms: Hrs Current Symptoms Are (Timing): Still Present Severity: Moderate Pain Scale Rating Of: 4 Recent travel outside of the [place]: No Past Medical History Reviewed: Historical Data, Nursing Documentation, Vital Signs Vital Signs: Last Vital Signs Temp 99.9 F H 08/19/18 04:42 Pulse 101 H 08/19/18 04:42 Resp 18 08/19/18 04:42 BP 145/63 08/19/18 04:42 Pulse Ox 98 08/19/18 04:42 Primary Care Provider: Mi Diaz - Medical History PMH: Hypothyroidism, Rheumatoid Arthritis, Seizures Family History: States: No Known Family Hx - Social History Hx Alcohol Use: No Hx Substance Use: No - Immunization History Hx Tetanus Toxoid Vaccination: No Hx Influenza Vaccination: No Hx Pneumococcal Vaccination: No Review Of Systems Constitutional: Negative for: Fever, Chills Cardiovascular: Negative for: Chest Pain, Palpitations Respiratory: Negative for: Cough, Shortness of Breath Gastrointestinal: Negative for: Nausea, Vomiting Musculoskeletal: Positive for: Other (Generalized body aches, buttock pain) Neurological: Negative for: Weakness, Numbness Physical Exam - Physical Exam Appears: Non-toxic Skin: Warm, Dry Head: Normacephalic Eye(s): bilateral: Other (s/p cataract surgery) Oral Mucosa: Moist Neck: Trachea Midline, Supple Chest: Symmetrical, No Tenderness Cardiovascular: Rhythm Regular Respiratory: No Rales, No Rhonchi, No Wheezing Gastrointestinal/Abdominal: Soft, No Tenderness Extremity: No Pedal Edema, Other (severe arthritic changes to bilateral hands) Pulses: Left Radial: Normal, Right Radial: Normal, Left Dorsalis Pedis: Normal, Right Dorsalis Pedis: Normal Neurological/Psych: Oriented x3 ED Course And Treatment - Laboratory Results Result Diagrams: 08/19/18 06:24 05/03/19 06:24 ECG: Interpreted By Me, Viewed By Me ECG Rhythm: Sinus Rhythm (86), ST/T Changes (lat ischemic changes), Nonspecific Changes O2 Sat by Pulse Oximetry: 98 (Room air) Pulse Ox Interpretation: Normal - Radiology CXR: Interpreted by Me, Viewed By Me CXR Interpretation: Yes: Other (fibrotic changes, loop recorder unchanged from 07/01/17). No: Infiltrates, Fracture, Cardiomegaly Progress Note: Blood work, EKG, CXR, and urinalysis ordered. Disposition Discussed With Dr.: Mi Diaz Comment: accepted the pt on his servie and took over the care at 6:46 AM Doctor Will See Patient In The: Hospital Counseled Patient/Family Regarding: Studies Performed, Diagnosis - Disposition Disposition: HOSPITALIZED Disposition Time: 05:13 Condition: FAIR Forms: [facility] (Nigerien) - POA Present On Arrival: Poor Glycemic Control - Clinical Impression Clinical Impression: Acute arthritis, Ambulatory dysfunction, Dehydration - Scribe Statement The provider has reviewed the documentation as recorded by the Scribefraín Swanson All medical record entries made by the Scribe were at my direction and personall y dictated by me. I have reviewed the chart and agree that the record accurately reflects my personal performance of the history, physical exam, medical decision making, and the department course for this patient. I have also personally directed, reviewed, and agree with the discharge instructions and disposition. Decision To Admit - Pt Status Changed To: Hospital Disposition Of: Observation - . Bed Request Type: Regular Admitting Physician: Mi Diaz Patient Diagnosis: Acute arthritis, Ambulatory dysfunction, Dehydration
[2018-08-19 06:29] LABS: VENOUS BLOOD GAS BASE EXCESS 1.5 mmol/L (0.0-2.0); VENOUS BLOOD GAS PCO2 39 mmHg (40-60); VENOUS BLOOD GAS PO2 34 mm/Hg (30-55); VENOUS BLOOD PH 7.43 (7.32-7.43)
[2018-08-19 06:30] LABS: BASO # 0.1 K/uL (0.0-0.2); BASO % 0.8 % (0.0-2.0); EOS % 0.3 % (0.0-4.0); LYMPH # 1.6 K/uL (1.0-4.3); MEAN CORPUSCULAR HEMOGLOBIN 30.8 pg (27.0-31.0); MEAN CORPUSCULAR HGB CONC 34.3 g/dL (33.0-37.0); MEAN PLATELET VOLUME 7.3 fL (7.2-11.7); MONO # 1.9 K/uL (0.0-0.8); MONO % 14.5 % (0.0-10.0); NEUT # 9.5 K/uL (1.8-7.0); NEUT % 72.4 % (50.0-75.0); RBC 3.9 Mil/uL (3.80-5.20); RED CELL DISTRIBUTION WIDTH 15.1 % (11.5-14.5); WHITE BLOOD COUNT 13.1 K/uL (4.8-10.8)
[2018-08-19 06:43] LABS: ALBUMIN 3.5 g/dL (3.5-5.0); ALT/SGPT 9 U/L (9-52); AST/SGOT 31 U/L (14-36); BLOOD UREA NITROGEN 20 mg/dL (7-17); CALCIUM 9.1 mg/dl (8.6-10.4); GFR NON-AFRICAN AMERICAN > 60; LIPASE 16 U/L (23-300)
[2018-08-19] MEDS ORDERED: Sodium Chloride 0.9% 1,000 ML IV ONE (06:50)
--- NOTE | 2018-08-19 11:40 | RAD ---
Date of service: 08/19/2018 PROCEDURE: CHEST RADIOGRAPH, 1 VIEW HISTORY: SOB COMPARISON: 07/01/2017 FINDINGS: LUNGS: Clear. PLEURA: No pneumothorax or pleural fluid seen. CARDIOVASCULAR: No aortic atherosclerotic calcification present. Normal. OSSEOUS STRUCTURES: No significant abnormalities. VISUALIZED UPPER ABDOMEN: Normal. OTHER FINDINGS: None. IMPRESSION: No active disease.
--- NOTE | 2018-08-19 20:18 | CP.PCM.HP ---
Past Patient History - Past Medical History & Family History Past Medical History?: Yes - Past Social History Smoking Status: Never Smoked - CARDIAC Other/Comment: "implanted heart monitor" - PULMONARY Hx Respiratory Disorders: No - NEUROLOGICAL Hx Neurological Disorder: Yes Hx Seizures: Yes - HEENT Hx HEENT Problems: No - RENAL Hx Chronic Kidney Disease: No - ENDOCRINE/METABOLIC Hx Endocrine Disorders: Yes Hx Hypothyroidism: Yes - HEMATOLOGICAL/ONCOLOGICAL Hx Blood Disorders: No - INTEGUMENTARY Hx Dermatological Problems: No - MUSCULOSKELETAL/RHEUMATOLOGICAL Hx Musculoskeletal Disorders: Yes Hx Falls: No Hx Osteoarthritis: Yes Hx Rheumatoid Arthritis: Yes - GASTROINTESTINAL Hx Gastrointestinal Disorders: No HX Swallowing Problems: Yes (difficulty withouit dentures) - GENITOURINARY/GYNECOLOGICAL Hx Genitourinary Disorders: No Other/Comment: incontinent at times - PSYCHIATRIC Hx Psychophysiologic Disorder: No Hx Substance Use: No - SURGICAL HISTORY Hx Surgeries: No Hx Thyroidectomy: Yes - ANESTHESIA Hx Anesthesia: Yes Hx Anesthesia Reactions: No Meds Allergies/Adverse Reactions: Allergies Allergy/AdvReac Type Severity Reaction Status Date / Time No Known Allergies Allergy Verified 08/19/18 05:01 Physical Exam - Constitutional Appears: Well - Head Exam Head Exam: ATRAUMATIC, NORMAL INSPECTION, NORMOCEPHALIC - Eye Exam Eye Exam: EOMI, Normal appearance, PERRL Pupil Exam: NORMAL ACCOMODATION, PERRL - ENT Exam ENT Exam: Mucous Membranes Moist, Normal Exam - Neck Exam Neck exam: Positive for: Normal Inspection - Respiratory Exam Respiratory Exam: Decreased Breath Sounds - Cardiovascular Exam Cardiovascular Exam: REGULAR RHYTHM, +S1, +S2 - GI/Abdominal Exam GI & Abdominal Exam: Diminished Bowel Sounds, Soft - Rectal Exam Rectal Exam: Deferred - Neurological Exam Neurological exam: Oriented x3 Results - Vital Signs Recent Vital Signs: Last Vital Signs Temp 98.1 F 08/19/18 16:30 Pulse 77 08/19/18 16:30 Resp 18 08/19/18 19:02 BP 122/60 08/19/18 16:30 Pulse Ox 97 08/19/18 16:30 - Labs Result Diagrams: 08/19/18 06:24 08/19/18 06:24 Labs: Laboratory Results - last 24 hr 08/19/18 08/19/18 08/19/18 06:22 06:24 06:24 WBC 13.1 H D RBC 3.90 Hgb 12.0 D Hct 35.1 MCV 90.0 MCH 30.8 MCHC 34.3 RDW 15.1 H Plt Count 350 MPV 7.3 Neut % (Auto) 72.4 Lymph % (Auto) 12.0 L Hyde % (Auto) 14.5 H Eos % (Auto) 0.3 Baso % (Auto) 0.8 Neut # (Auto) 9.5 H Lymph # (Auto) 1.6 Hyde # (Auto) 1.9 H Eos # (Auto) 0.0 Baso # (Auto) 0.1 pO2 34 VBG pH 7.43 VBG pCO2 39 L VBG HCO3 25.3 VBG Total CO2 27.1 VBG O2 Sat (Calc) 71.7 H VBG Base Excess 1.5 VBG Potassium 3.0 L Sodium 143.0 140 Chloride 109.0 H 104 Glucose 104 Lactate 0.9 Potassium 3.6 Carbon Dioxide 27 Anion Gap 13 BUN 20 H Creatinine 0.5 L Est GFR ( Amer) > 60 Est GFR (Non-Af Amer) > 60 Random Glucose 118 H D Calcium 9.1 Magnesium 1.9 Total Bilirubin 1.1 AST 31 ALT 9 D Alkaline Phosphatase 86 Total Protein 7.2 Albumin 3.5 Globulin 3.7 Albumin/Globulin Ratio 1.0 Lipase 16 L Venous Blood Potassium 3.0 L
[2018-08-19] MEDS: Sodium Chloride 0.9% 1,000 ML IV SCH (22:00)
[2018-08-20] MEDS: Levothyroxine 75 MCG TAB PO SCH (06:00)
[2018-08-20] MEDS: Enoxaparin 40 mg Syringe SC SCH ×2 (11:16→21:38)
--- NOTE | 2018-08-20 14:30 | CARD ---
APPROVED REPORT Date of service: 08/19/2018 EKG Measurement Heart [id number] [place] 124P-3 [id number] <Conclusion> Normal sinus rhythm ST & T wave abnormality, consider lateral ischemia Abnormal ECG
--- NOTE | 2018-08-20 15:07 | CP.PCM.PN ---
Subjective - Date & Time of Evaluation Date of Evaluation: 08/20/18 - Subjective Subjective: patient examined today at bedside no fever no diarrhea no vomiting no shortness of breath no nausea Objective - Vital Signs/Intake and Output Vital Signs (last 24 hours): Temp Pulse Resp BP Pulse Ox 97.5 F L 81 18 151/67 H 97 08/20/18 10:08 08/20/18 10:08 08/20/18 10:08 08/20/18 10:08 08/20/18 10:08 Intake and Output: 08/20/18 08/20/18 06:59 18:59 Intake Total 862 Balance 862 - Medications Medications: Current Medications Aspirin (Aspirin Chewable) 81 mg PO DAILY [facility] Last Admin: 08/20/18 11:17 Dose: 81 mg Enoxaparin Sodium (Lovenox) 40 mg SC Q12 [facility] Last Admin: 08/20/18 11:16 Dose: 40 mg Sodium Chloride (Sodium Chloride 0.9%) 1,000 mls @ 50 mls/hr IV .Q20H [facility] Last Admin: 08/19/18 22:00 Dose: 50 mls/hr Ketorolac Tromethamine (Toradol) 15 mg IVP Q8 PRN PRN Reason: Pain, moderate (4-7) Last Admin: 08/20/18 08:55 Dose: 15 mg Levetiracetam (Keppra) 500 mg PO BID [facility] Last Admin: 08/20/18 11:16 Dose: 500 mg Levothyroxine Sodium (Synthroid) 75 mcg PO DAILY@0630 [facility] Last Admin: 08/20/18 06:00 Dose: 75 mcg - Labs Labs: 08/19/18 06:24 08/19/18 06:24 - Constitutional Appears: Well - Head Exam Head Exam: ATRAUMATIC, NORMAL INSPECTION, NORMOCEPHALIC - Eye Exam Eye Exam: EOMI, Normal appearance, PERRL Pupil Exam: NORMAL ACCOMODATION, PERRL - ENT Exam ENT Exam: Mucous Membranes Moist, Normal Exam - Neck Exam Neck Exam: Full ROM, Normal Inspection. absent: Lymphadenopathy - Respiratory Exam Respiratory Exam: Decreased Breath Sounds - Cardiovascular Exam Cardiovascular Exam: REGULAR RHYTHM, +S1, +S2 - GI/Abdominal Exam GI & Abdominal Exam: Soft, Diminished Bowel Sounds - Rectal Exam Rectal Exam: Deferred - Neurological Exam Neurological Exam: Oriented x3 Assessment and Plan - Assessment and Plan (Free Text) Plan: plan discussed with family moderate to severe complexity of care medications reviewed aspirin chewable keppra lovenox sodium chloride synthroid toradol labs and vitals reviewed
[2018-08-20 15:46] VITALS: RESP 20
[2018-08-20 15:59] LABS: ANTI STREPTOLYSIN O NEGATIVE (NEGATIVE)
[2018-08-20] MEDS: Sodium Chloride 0.9% 1,000 ML IV SCH (17:30)
[2018-08-21] MEDS: Levothyroxine 75 MCG TAB PO SCH (05:33)
[2018-08-21] MEDS: Enoxaparin 40 mg Syringe SC SCH ×2 (10:16→21:23)
--- NOTE | 2018-08-21 13:05 | CP.PCM.CON ---
History of Present Illness - History of Present Illness History of Present Illness: 88-year-old female who was [facility] to [facility] emergency room by her family complaining of severe joint pain and stiffness. Patient was unable to get out of bed today. She has a past history of rheumatoid arthritis and osteoporosis. She has been taking methotrexate 6 tablets once a week for the past 4 months. Laboratory studies reveal a sedimentation rate of 95 and a C- reactive protein greater than 15. patient is extremely pleasant, cooperative but forgetful. X-rays of both knees was requested. Suggest also a bone scan to rule out any occult process. Suggest not using methotrexate in an 88-year-old due to the potential of compromising renal and hepatic function. Suggest sulfasalazine 500 mg twice a day as initial therapy Review of Systems - Review of Systems Systems not reviewed;Unavailable: Dementia, Other (Joint pain) - Constitutional Constitutional: Fatigue - EENT Eyes: Dry Eye Ears: Tinnitus - Menstruation Menstruation: Post Menopausal - Musculoskeletal Musculoskeletal: Arthralgias - Neurological Neurological: Numbness, Weakness Past Patient History - Past Medical History & Family History Past Medical History?: Yes - Past Social History Smoking Status: Never Smoked Chewing Tobacco Use: No Cigar Use: No Alcohol: None Drugs: Denies Home Situation {Lives}: With Family - CARDIAC Other/Comment: "implanted heart monitor" - PULMONARY Hx Respiratory Disorders: No - NEUROLOGICAL Hx Neurological Disorder: Yes Hx Seizures: Yes - HEENT Hx HEENT Problems: No Hx Sinusitis: Yes - RENAL Hx Chronic Kidney Disease: No - ENDOCRINE/METABOLIC Hx Hypothyroidism: Yes - HEMATOLOGICAL/ONCOLOGICAL Hx Blood Disorders: No - INTEGUMENTARY Hx Dermatological Problems: No - MUSCULOSKELETAL/RHEUMATOLOGICAL Hx Arthritis: Yes Hx Osteoporosis: Yes Hx Rheumatoid Arthritis: Yes - GASTROINTESTINAL Hx Gastrointestinal Disorders: No HX Swallowing Problems: Yes (difficulty withouit dentures) - GENITOURINARY/GYNECOLOGICAL Hx Genitourinary Disorders: No Other/Comment: incontinent at times - PSYCHIATRIC Hx Psychophysiologic Disorder: No Hx Substance Use: No - SURGICAL HISTORY Hx Surgeries: No Hx Thyroidectomy: Yes - ANESTHESIA Hx Anesthesia: Yes Hx Anesthesia Reactions: No Meds Allergies/Adverse Reactions: Allergies Allergy/AdvReac Type Severity Reaction Status Date / Time No Known Allergies Allergy Verified 08/19/18 05:01 - Medications Medications: Current Medications Aspirin (Aspirin Chewable) 81 mg PO DAILY [facility] Last Admin: 08/21/18 10:16 Dose: 81 mg Enoxaparin Sodium (Lovenox) 40 mg SC Q12 [facility] Last Admin: 08/21/18 10:16 Dose: 40 mg Sodium Chloride (Sodium Chloride 0.9%) 1,000 mls @ 50 mls/hr IV .Q20H [facility] Last Admin: 08/20/18 17:30 Dose: 50 mls/hr Levetiracetam (Keppra) 500 mg PO BID [facility] Last Admin: 08/21/18 10:16 Dose: 500 mg Levothyroxine Sodium (Synthroid) 75 mcg PO DAILY@0630 [facility] Last Admin: 08/21/18 05:33 Dose: 75 mcg Sulfasalazine (Azulfidine) 500 mg PO BID [facility]; Protocol Stop: 08/28/18 10:01 Physical Exam - Constitutional Appears: Chronically Ill - Head Exam Head Exam: NORMOCEPHALIC - Eye Exam Pupil Exam: NORMAL ACCOMODATION - ENT Exam ENT Exam: Normal Exam - Neck Exam Neck exam: Positive for: Normal Inspection - Respiratory Exam Respiratory Exam: Decreased Breath Sounds - Cardiovascular Exam Cardiovascular Exam: REGULAR RHYTHM - GI/Abdominal Exam GI & Abdominal Exam: Normal Bowel Sounds - Rectal Exam Rectal Exam: Deferred - Extremities Exam Extremities exam: Positive for: joint swelling - Back Exam Back exam: NORMAL INSPECTION - Psychiatric Exam Psychiatric exam: Normal Affect - Skin Skin Exam: Dry Results - Vital Signs Recent Vital Signs: Last Vital Signs Temp 98.5 F 08/21/18 08:38 Pulse 83 08/21/18 08:38 Resp 20 08/21/18 08:38 BP 141/60 08/21/18 08:38 Pulse Ox 99 08/21/18 11:45 - Labs Result Diagrams: 08/19/18 06:24 08/19/18 06:24 Labs: Laboratory Results - last 24 hr 08/20/18 07:37 Anti-Streptolysin O Ab Negative Assessment & Plan (1) Rheumatoid arthritis Status: Acute (2) Arteriosclerotic heart disease (ASHD) Status: Acute (3) Seizure disorder Status: Acute (4) Hypothyroid Status: Acute
[2018-08-21] MEDS: Sodium Chloride 0.9% 1,000 ML IV SCH (14:14)
--- NOTE | 2018-08-21 15:48 | CP.PCM.PN ---
Subjective - Date & Time of Evaluation Date of Evaluation: 08/21/18 - Subjective Subjective: patient examined today no nausea no vomitng no diarrhea no dizziness no fever no shortness of breath Objective - Vital Signs/Intake and Output Vital Signs (last 24 hours): Temp Pulse Resp BP Pulse Ox 98.8 F 76 20 159/75 H 96 08/21/18 15:00 08/21/18 15:00 08/21/18 15:00 08/21/18 15:00 08/21/18 15:00 Intake and Output: 08/21/18 08/21/18 06:59 18:59 Intake Total 1140 Balance 1140 - Medications Medications: Current Medications Aspirin (Aspirin Chewable) 81 mg PO DAILY [facility] Last Admin: 08/21/18 10:16 Dose: 81 mg Enoxaparin Sodium (Lovenox) 40 mg SC Q12 [facility] Last Admin: 08/21/18 10:16 Dose: 40 mg Sodium Chloride (Sodium Chloride 0.9%) 1,000 mls @ 50 mls/hr IV .Q20H [facility] Last Admin: 08/21/18 14:14 Dose: 50 mls/hr Levetiracetam (Keppra) 500 mg PO BID [facility] Last Admin: 08/21/18 10:16 Dose: 500 mg Levothyroxine Sodium (Synthroid) 75 mcg PO DAILY@0630 [facility] Last Admin: 08/21/18 05:33 Dose: 75 mcg Sulfasalazine (Azulfidine) 500 mg PO BID [facility]; Protocol Stop: 08/28/18 10:01 - Labs Labs: 08/19/18 06:24 08/19/18 06:24 - Constitutional Appears: Well - Head Exam Head Exam: ATRAUMATIC, NORMAL INSPECTION, NORMOCEPHALIC - Eye Exam Eye Exam: EOMI, Normal appearance, PERRL Pupil Exam: NORMAL ACCOMODATION, PERRL - ENT Exam ENT Exam: Mucous Membranes Moist, Normal Exam - Neck Exam Neck Exam: Full ROM, Normal Inspection. absent: Lymphadenopathy - Respiratory Exam Respiratory Exam: Decreased Breath Sounds - Cardiovascular Exam Cardiovascular Exam: REGULAR RHYTHM, +S1, +S2 - GI/Abdominal Exam GI & Abdominal Exam: Diminished Bowel Sounds - Rectal Exam Rectal Exam: Deferred - Neurological Exam Neurological Exam: Oriented x3 Assessment and Plan - Assessment and Plan (Free Text) Plan: aspirin chewable keppra lovenox sodium chloride synthroid toradol labs and vitals reviewed plan discussed with family moderate complexity of care medications reviewed
--- NOTE | 2018-08-21 17:22 | RAD ---
Date of service: 08/21/2018 PROCEDURE: Bilateral Knee Radiographs. HISTORY: severe pain COMPARISON: None. TECHNIQUE: 4 views obtained. FINDINGS: BONES: Right Knee: Normal. No fracture. Left Knee: Normal. No fracture. JOINTS: Right Knee: Moderate osteoarthritic changes Left knee: Moderate osteoarthritic changes. SOFT TISSUES: Right Knee: Normal. Left Knee: Normal. JOINT EFFUSION: Right Knee: Small to moderate suprapatellar joint effusion Left Knee: None. OTHER FINDINGS: None. IMPRESSION: Moderate bilateral osteoarthritis. Diffuse osteopenia. Small to moderate right joint effusion.
[2018-08-22] MEDS: Levothyroxine 75 MCG TAB PO SCH (06:22)
[2018-08-22] MEDS: Sodium Chloride 0.9% 1,000 ML IV SCH ×2 (10:36→10:59)
[2018-08-22] MEDS: Enoxaparin 40 mg Syringe SC SCH ×2 (10:45→21:41)
--- NOTE | 2018-08-22 14:21 | NM ---
Date of service: Yes 08/22/2018 PROCEDURE: Whole Body Bone Scan HISTORY: Severe rheumatoid arthritis, osteoarthritis. COMPARISON: August 21, 2018. Plain film radiographs both knees TECHNIQUE: Following administration of 23.6 miCu of Tc MDP multiplanar whole body images were obtained. Additional cone-down views of bilateral knees and wrists. FINDINGS: Evidence for bony metastatic disease: None. Degenerative uptake: Bilateral ankles, feet and right knee. Physiologic uptake: Normal physiologic activity in the kidneys. Other findings: Increased uptake in both wrists, sacroiliac joints. Findings are consistent with known diagnosis of rheumatoid arthritis. IMPRESSION: 1. Increased uptake right knee consistent with plain film findings. 2. Degenerative changes both feet and ankles. 3. Arthritic changes in both hands and wrists right greater than left. Although nonspecific, the findings are consistent with clinically stated diagnosis of rheumatoid arthritis. 4. No evidence of bony metastatic disease.
[2018-08-22 16:42] LABS: RNP <1.0 AI (<1.0)
--- NOTE | 2018-08-22 18:46 | CP.PCM.PN ---
Subjective - Date & Time of Evaluation Date of Evaluation: 08/22/18 - Subjective Subjective: patient examined today no nausea no vomiting no dizziness no diarrhea no fever no shortness of breath Objective - Vital Signs/Intake and Output Vital Signs (last 24 hours): Temp Pulse Resp BP Pulse Ox 97.5 F L 75 20 164/75 H 94 L 08/22/18 15:35 08/22/18 15:35 08/22/18 15:35 08/22/18 15:35 08/22/18 15:35 Intake and Output: 08/22/18 08/22/18 06:59 18:59 Intake Total 1160 650 Balance 1160 650 - Medications Medications: Current Medications Aspirin (Aspirin Chewable) 81 mg PO DAILY [facility] Last Admin: 08/22/18 10:44 Dose: 81 mg Enoxaparin Sodium (Lovenox) 40 mg SC Q12 [facility] Last Admin: 08/22/18 10:45 Dose: 40 mg Sodium Chloride (Sodium Chloride 0.9%) 1,000 mls @ 50 mls/hr IV .Q20H [facility] Last Admin: 08/22/18 10:59 Dose: 50 mls/hr Ketorolac Tromethamine (Toradol) 15 mg IVP Q8 PRN PRN Reason: Pain, moderate (4-7) Last Admin: 08/22/18 06:23 Dose: 15 mg Levetiracetam (Keppra) 500 mg PO BID [facility] Last Admin: 08/22/18 17:29 Dose: 500 mg Levothyroxine Sodium (Synthroid) 75 mcg PO DAILY@0630 [facility] Last Admin: 08/22/18 06:22 Dose: 75 mcg Sulfasalazine (Azulfidine) 500 mg PO BID [facility]; Protocol Stop: 08/28/18 10:01 Last Admin: 08/22/18 17:30 Dose: 500 mg - Labs Labs: 08/19/18 06:24 08/19/18 06:24 - Constitutional Appears: Well - Head Exam Head Exam: ATRAUMATIC, NORMAL INSPECTION, NORMOCEPHALIC - Eye Exam Eye Exam: EOMI, Normal appearance, PERRL Pupil Exam: NORMAL ACCOMODATION, PERRL - ENT Exam ENT Exam: Mucous Membranes Moist, Normal Exam - Neck Exam Neck Exam: Full ROM, Normal Inspection. absent: Lymphadenopathy - Respiratory Exam Respiratory Exam: Decreased Breath Sounds - Cardiovascular Exam Cardiovascular Exam: REGULAR RHYTHM, +S1, +S2 - GI/Abdominal Exam GI & Abdominal Exam: Soft, Diminished Bowel Sounds - Rectal Exam Rectal Exam: Deferred - Neurological Exam Neurological Exam: Oriented x3 Assessment and Plan - Assessment and Plan (Free Text) Plan: aspirin chewable keppra azulfidin lovenox sodium chloride synthroid toradol labs and vitals reviewed plan discussed with family moderate complexity of care medications reviewed
[2018-08-23] MEDS: Levothyroxine 75 MCG TAB PO SCH (06:08)
[2018-08-23] MEDS: Enoxaparin 40 mg Syringe SC SCH ×2 (10:10→22:24)
[2018-08-23 16:10] VITALS: TEMP 98.5
--- NOTE | 2018-08-23 16:26 | CP.PCM.PN ---
Subjective - Date & Time of Evaluation Date of Evaluation: 08/23/18 Time of Evaluation: 16:20 - Subjective Subjective: 88-year-old female who was brought to the [facility] emergency room by her family complaining of severe joint pain and stiffness. Patient was unable to get out of bed today. She has a past history of rheumatoid arthritis and osteop orosis. She has been taking methotrexate 6 tablets once a week for the past 4 months. Laboratory studies reveal a sedimentation rate of 95 and a C-reactive protein greater than 15. Patient is extremely pleasant, cooperative but forgetful at times. Images showed osteoarthrities and joint effusion. Bennett suggested to discontinue methotrexate due to the potential of compromising renal and hepatic function. Bennett suggested sulfasalazine 500 mg twice a day and the medication will be continued for an additional 5 days. Pt seen and examined. VSS. Labs reviewed. Resuming home medications. PT/OT as tolerated. Plan discussed with family to transfer pt to [facility]. Objective - Vital Signs/Intake and Output Vital Signs (last 24 hours): Temp Pulse Resp BP Pulse Ox 98.5 F 76 20 138/70 95 08/23/18 16:00 08/23/18 16:00 08/23/18 16:00 08/23/18 16:00 08/23/18 16:00 Intake and Output: 08/23/18 08/23/18 06:59 18:59 Intake Total 250 Balance 250 - Medications Medications: Current Medications Aspirin (Aspirin Chewable) 81 mg PO DAILY [facility] Last Admin: 08/23/18 10:08 Dose: 81 mg Enoxaparin Sodium (Lovenox) 40 mg SC Q12 [facility] Last Admin: 08/23/18 10:10 Dose: 40 mg Ketorolac Tromethamine (Toradol) 15 mg IVP Q8 PRN PRN Reason: Pain, moderate (4-7) Last Admin: 08/22/18 06:23 Dose: 15 mg Levetiracetam (Keppra) 500 mg PO BID [facility] Last Admin: 08/23/18 10:09 Dose: 500 mg Levothyroxine Sodium (Synthroid) 75 mcg PO DAILY@0630 [facility] Last Admin: 08/23/18 06:08 Dose: 75 mcg Sulfasalazine (Azulfidine) 500 mg PO BID [facility]; Protocol Stop: 08/28/18 10:01 Last Admin: 08/23/18 10:08 Dose: 500 mg - Labs Labs: 08/19/18 06:24 08/19/18 06:24 Assessment and Plan - Assessment and Plan (Free Text) Assessment: pt alert and oriented to self and place. VSS.
--- NOTE | 2018-08-23 18:52 | CP.PCM.PN ---
Subjective - Date & Time of Evaluation Date of Evaluation: 08/23/18 - Subjective Subjective: patient examined today no nausea no vomiting no dizziness no diarrhea no fever no shortness of breath Objective - Vital Signs/Intake and Output Vital Signs (last 24 hours): Temp Pulse Resp BP Pulse Ox 98.5 F 76 20 138/70 95 08/23/18 16:00 08/23/18 16:00 08/23/18 16:00 08/23/18 16:00 08/23/18 16:00 Intake and Output: 08/23/18 08/23/18 06:59 18:59 Intake Total 250 Balance 250 - Medications Medications: Current Medications Aspirin (Aspirin Chewable) 81 mg PO DAILY [facility] Last Admin: 08/23/18 10:08 Dose: 81 mg Enoxaparin Sodium (Lovenox) 40 mg SC Q12 [facility] Last Admin: 08/23/18 10:10 Dose: 40 mg Ketorolac Tromethamine (Toradol) 15 mg IVP Q8 PRN PRN Reason: Pain, moderate (4-7) Last Admin: 08/22/18 06:23 Dose: 15 mg Levetiracetam (Keppra) 500 mg PO BID [facility] Last Admin: 08/23/18 17:33 Dose: 500 mg Levothyroxine Sodium (Synthroid) 75 mcg PO DAILY@0630 [facility] Last Admin: 08/23/18 06:08 Dose: 75 mcg Sulfasalazine (Azulfidine) 500 mg PO BID [facility]; Protocol Stop: 08/28/18 10:01 Last Admin: 08/23/18 17:32 Dose: 500 mg - Labs Labs: 08/19/18 06:24 08/19/18 06:24 - Constitutional Appears: Well - Head Exam Head Exam: ATRAUMATIC, NORMAL INSPECTION, NORMOCEPHALIC - Eye Exam Eye Exam: EOMI, Normal appearance, PERRL Pupil Exam: NORMAL ACCOMODATION, PERRL - ENT Exam ENT Exam: Mucous Membranes Moist, Normal Exam - Neck Exam Neck Exam: Full ROM, Normal Inspection. absent: Lymphadenopathy - Respiratory Exam Respiratory Exam: Decreased Breath Sounds - Cardiovascular Exam Cardiovascular Exam: REGULAR RHYTHM, +S1, +S2 - GI/Abdominal Exam GI & Abdominal Exam: Soft, Diminished Bowel Sounds - Rectal Exam Rectal Exam: Deferred - Neurological Exam Neurological Exam: Oriented x3 Assessment and Plan - Assessment and Plan (Free Text) Plan: plan discussed with patient moderate complexity of care medications reviewed aspirin chewable azulfidine keppra lovenox synthroid toradol labs and vitals reviewed
[2018-08-24] MEDS: Levothyroxine 75 MCG TAB PO SCH (05:48)
[2018-08-24 08:38] VITALS: BP 168/76; PULSE 73; O2SAT 96
[2018-08-24] MEDS ORDERED: Pneumococcal 23-Valent Vaccine IM ONE (09:43)
[2018-08-24] MEDS: Enoxaparin 40 mg Syringe SC SCH (11:34)
--- NOTE | 2018-08-24 23:57 | CP.PCM.DIS ---
Provider - Provider Date of Admission: 08/22/18 14:05 Attending physician: Bret Diaz MD Consults: 08/19/18 16:41 Physician Consult Routine Comment: Consulting Provider: Shubham Guajardo Consulting Physician: Shubham Guajardo Reason for Consult: rheumatoid arthritis Time Spent in preparation of Discharge (in minutes): 25 Hospital Course - Lab Results Lab Results: Most Recent Lab Values WBC 13.1 K/uL (4.8-10.8) H D 08/19/18 06:24 RBC 3.90 Mil/uL (3.80-5.20) 08/19/18 06:24 Hgb 12.0 g/dL (11.0-16.0) D 08/19/18 06:24 Hct 35.1 % (34.0-47.0) 08/19/18 06:24 MCV 90.0 fL (81.0-99.0) 08/19/18 06:24 MCH 30.8 pg (27.0-31.0) 08/19/18 06:24 MCHC 34.3 g/dL (33.0-37.0) 08/19/18 06:24 RDW 15.1 % (11.5-14.5) H 08/19/18 06:24 Plt Count 350 K/uL (130-400) 08/19/18 06:24 MPV 7.3 fL (7.2-11.7) 08/19/18 06:24 Neut % (Auto) 72.4 % (50.0-75.0) 08/19/18 06:24 Lymph % (Auto) 12.0 % (20.0-40.0) L 08/19/18 06:24 Bradford % (Auto) 14.5 % (0.0-10.0) H 08/19/18 06:24 Eos % (Auto) 0.3 % (0.0-4.0) 08/19/18 06:24 Baso % (Auto) 0.8 % (0.0-2.0) 08/19/18 06:24 Neut # (Auto) 9.5 K/uL (1.8-7.0) H 08/19/18 06:24 Lymph # (Auto) 1.6 K/uL (1.0-4.3) 08/19/18 06:24 Bradford # (Auto) 1.9 K/uL (0.0-0.8) H 08/19/18 06:24 Eos # (Auto) 0.0 K/uL (0.0-0.7) 08/19/18 06:24 Baso # (Auto) 0.1 K/uL (0.0-0.2) 08/19/18 06:24 ESR 95 mm/hr (0-20) H 08/20/18 07:37 pO2 34 mm/Hg (30-55) 08/19/18 06:22 VBG pH 7.43 (7.32-7.43) 08/19/18 06:22 VBG pCO2 39 mmHg (40-60) L 08/19/18 06:22 VBG HCO3 25.3 mmol/L 08/19/18 06:22 VBG Total CO2 27.1 mmol/L (22-28) 08/19/18 06:22 VBG O2 Sat (Calc) 71.7 % (40-65) H 08/19/18 06:22 VBG Base Excess 1.5 mmol/L (0.0-2.0) 08/19/18 06:22 VBG Potassium 3.0 mmol/L (3.6-5.2) L 08/19/18 06:22 Sodium 143.0 mmol/l (132-148) 08/19/18 06:22 Chloride 109.0 mmol/L (98-107) H 08/19/18 06:22 Glucose 104 mg/dl (65-105) 08/19/18 06:22 Lactate 0.9 mmol/L (0.7-2.1) 08/19/18 06:22 Sodium 140 mmol/L (132-148) 08/19/18 06:24 Potassium 3.6 mmol/L (3.6-5.2) 08/19/18 06:24 Chloride 104 mmol/L (98-107) 08/19/18 06:24 Carbon Dioxide 27 mmol/L (22-30) 08/19/18 06:24 Anion Gap 13 (10-20) 08/19/18 06:24 BUN 20 mg/dL (7-17) H 08/19/18 06:24 Creatinine 0.5 mg/dL (0.7-1.2) L 08/19/18 06:24 Est GFR ( Amer) > 60 08/19/18 06:24 Est GFR (Non-Af Amer) > 60 08/19/18 06:24 Random Glucose 118 mg/dL (65-105) H D 08/19/18 06:24 Calcium 9.1 mg/dl (8.6-10.4) 08/19/18 06:24 Magnesium 1.9 mg/dL (1.6-2.3) 08/19/18 06:24 Total Bilirubin 1.1 mg/dL (0.2-1.3) 08/19/18 06:24 AST 31 U/L (14-36) 08/19/18 06:24 ALT 9 U/L (9-52) D 08/19/18 06:24 Alkaline Phosphatase 86 U/L (38-126) 08/19/18 06:24 C-React Prot High Sens > 15.00 mg/L (1.00-3.00) H 08/20/18 07:37 Total Protein 7.2 g/dL (6.3-8.3) 08/19/18 06:24 Albumin 3.5 g/dL (3.5-5.0) 08/19/18 06:24 Globulin 3.7 gm/dL (2.2-3.9) 08/19/18 06:24 Albumin/Globulin Ratio 1.0 (1.0-2.1) 08/19/18 06:24 Lipase 16 U/L (23-300) L 08/19/18 06:24 Venous Blood Potassium 3.0 mmol/L (3.6-5.2) L 08/19/18 06:22 Cycl Citrul Peptide IgG >250 Units H 08/20/18 07:37 CONCHITA 6 Profile Negative (NEGATIVE) 08/20/18 07:37 PRODUCTION CONTROL ANALYST Antibody <1.0 AI (<1.0) 08/20/18 07:37 PRODUCTION CONTROL ANALYST Antibody Interp Negative (Negative) 08/20/18 07:37 Anti-Streptolysin O Ab Negative (NEGATIVE) 08/20/18 07:37 Discharge Exam - Head Exam Head Exam: ATRAUMATIC, NORMAL INSPECTION, NORMOCEPHALIC Discharge Plan - Discharge Medications Prescriptions: Sulfasalazine [Azulfidine] 500 mg PO BID 5 Days ect - Follow Up Plan Condition: FAIR Disposition: REHAB FACILITY/REHAB UNIT Instructions: Osteoarthritis, Rheumatoid Arthritis (DC)
[2018-08-26] MEDS ORDERED: Home Med 1 UNIT (Alendronate [Fosamax] 70 MG) PO SCH (10:00)
== END 2018-08-24 12:15 | DRG 547 ==
LOC: C.ER 04:34 → C.9E 06:48 → C.3T 14:41 → C.9E 14:42 → C.3T 16:11 → OBSVTOIN 08-22 14:05
PROVIDERS: ADMIT Internal Medicine Nephrology; ATTEND Internal Medicine Nephrology
DX: M06.9 Rheumatoid arthritis, unspecified (principal); M19.90 Unspecified osteoarthritis, unspecified site; M81.0 Age-related osteoporosis without current pathological fracture; E86.0 Dehydration; R26.9 Unspecified abnormalities of gait and mobility; F03.90 Unspecified dementia, unspecified severity, without behavioral disturbance, psychotic disturbance, mood disturbance, and anxiety; I25.10 Atherosclerotic heart disease of native coronary artery without angina pectoris; G40.909 Epilepsy, unspecified, not intractable, without status epilepticus; E03.9 Hypothyroidism, unspecified